=== PATIENT | male | born 1975 | race Caucasian/White ===

== ENCOUNTER 2018-09-01 09:46 | Emergency (ER) | payer SELFPAY ==
[~2018-09-01] VITALS: Ht 167.6 cm; Wt 53.5 kg
[2018-09-01 09:53] VITALS: Ht 167.6 cm; Wt 53.5 kg
[2018-09-01] MEDS ORDERED: HYDROCODONE/APAP (5/325) TAB PO ONE (12:00)
[2018-09-01] MEDS ORDERED: TETRACAINE 0.5% 4 ML OPH LEFT EYE ONE (12:00)
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
[2018-09-01] MEDS ORDERED: OXYC-279 PO (12:13)
[2018-09-01] MEDS ORDERED: POLY10DR19 LEFT EYE (12:15)
[2018-09-01] MEDS ORDERED: FLUORESCEIN STRIP LEFT EYE ONE (13:30)
[2018-09-01] MEDS ORDERED: ERYT1OIN6 LEFT EYE ×2 (13:40→13:42)
[2018-09-01] MEDS ORDERED: ERYTHROMYCIN 1 GM OPH OINT LEFT EYE ONE (14:00)
== END 2018-09-01 15:05 | disposition home or self-care (01) ==
LOC: FTE 09:46
DX: T54.2X1A Toxic effect of corrosive acids and acid-like substances, accidental (unintentional), initial encounter (principal)
CPT/HCPCS: 99283